=== PATIENT | female | born 1970 | race Caucasian/White ===

== ENCOUNTER 2022-07-26 11:04 | Outpatient (CLI) | payer SELFPAY ==
--- NOTE | 2022-07-26 11:30 | CRLHL7_ITS ---
For Patients: As a result of the Century Cures Act, medical imaging exams and procedure reports are released immediately into your electronic medical record. You may view this report before your referring provider. If you have questions, please contact your health care provider. BILATERAL SCREENING MAMMOGRAM WITH COMPUTER-AIDED DETECTION TECHNIQUE: CC and MLO views were obtained. These mammographic images have been obtained using full-field digital technique. These mammographic images were interpreted with the benefit of computer-aided detection. COMPARISON FILM: Baseline. FINDINGS: The breasts are heterogeneously dense, which may obscure small masses IMPRESSION: There is no radiographic evidence for malignancy. ASSESSMENT: BI-RADS Category 1: Negative RECOMMENDATION: Routine screening mammogram in 1 year. A lay language report of this examination will be provided to the patient. Aden Vázquez M.D. Diagnostic Radiologist [email or web address] PRISCA/[email or web address] / be/Dictated by: Aden Vázquez MD @ 07/26/2022 11:46:00 AM (Electronically Signed)
== END 2022-07-26 11:05 | disposition home or self-care (01) ==
LOC: MAMMO 11:06
PROVIDERS: PCP Family Medicine
DX: Z12.31 Encounter for screening mammogram for malignant neoplasm of breast (principal); R92.2 Inconclusive mammogram
CPT/HCPCS: 77063; 77067

== ENCOUNTER 2024-01-31 11:12 | Outpatient (CLI) | payer OTHER, SELFPAY | END 2024-01-31 11:13 | disposition home or self-care (01) | PROVIDERS: PCP Family Medicine; Visit Provider Family Medicine | DX: E78.00 Pure hypercholesterolemia, unspecified (principal); R59.1 Generalized enlarged lymph nodes; R63.5 Abnormal weight gain; Z13.228 Encounter for screening for other metabolic disorders; Z13.29 Encounter for screening for other suspected endocrine disorder | CPT/HCPCS: 80053; 80061; 84443 ==

== ENCOUNTER 2024-08-29 07:48 | Outpatient (CLI) | payer OTHER, SELFPAY ==
--- NOTE | 2024-08-29 08:00 | CRLHL7_ITS ---
For Patients: As a result of the Century Cures Act, medical imaging exams and procedure reports are released immediately into your electronic medical record. You may view this report before your referring provider. If you have questions, please contact your health care provider. CLINICAL HISTORY: Headaches; concern for cerebral aneurysm. TECHNIQUE: Standard helical CT image acquisition through the head following the administration of intravenous contrast was performed. 3D and MIP reconstructions were performed at a separate workstation and permanently archived. COMPARISON: None available. FINDINGS: Intracranial atherosclerotic disease involves the posterior greater than anterior circulation noting severe stenosis of the distal intracranial right vertebral artery and multifocal moderate to severe stenoses of the proximal to mid basilar trunk. 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 No findings to suggest an arterial-venous shunting lesion. The major dural venous sinuses and deep venous system are patent. IMPRESSION: 1. 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 2. 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 For consultation with our Neurointerventional service at [facility] regarding this patient`s cerebral aneurysm, please call [phone] to make arrangements with our coordinator.: For consultation with our Neurointerventional service at [facility] regarding this patient`s cerebral aneurysm, please call [phone] to make arrangements with our coordinator.: Please note that all CT scans at this facility use dose modulation, iterative reconstruction, and/or weight-based dosing when appropriate to reduce radiation dose to as low as reasonably achievable. Dictated by Wilner Coto MD @ 08/29/2024 11:26:33 AM (Electronically Signed)
== END 2024-08-29 07:49 | disposition home or self-care (01) ==
PROVIDERS: PCP Family Medicine; Visit Provider Family Medicine
DX: R51.9 Headache, unspecified (principal); I67.1 Cerebral aneurysm, nonruptured; I65.01 Occlusion and stenosis of right vertebral artery; Z82.49 Family history of ischemic heart disease and other diseases of the circulatory system
CPT/HCPCS: 70496; Q9967

== ENCOUNTER 2024-11-11 13:03 | Outpatient (CLI) | payer OTHER, SELFPAY ==
--- NOTE | 2024-11-11 13:20 | CRLHL7_ITS ---
For Patients: As a result of the Century Cures Act, medical imaging exams and procedure reports are released immediately into your electronic medical record. You may view this report before your referring provider. If you have questions, please contact your health care provider. BILATERAL SCREENING MAMMOGRAM WITH COMPUTER-AIDED DETECTION AND TOMOSYNTHESIS TECHNIQUE: CC and MLO views were obtained. These mammographic images have been obtained using full-field digital technique. These mammographic images were interpreted with the benefit of computer-aided detection. Breast Tomosynthesis was used in this interpretation. COMPARISON FILM: 07/26/22. FINDINGS: The breasts are heterogeneously dense, which may obscure small masses. IMPRESSION: There is no radiographic evidence for malignancy. ASSESSMENT: BI-RADS Category 1: Negative RECOMMENDATION: Routine screening mammogram in 1 year. A lay language report of this examination will be provided to the patient. Aden Vázquez M.D. Diagnostic Radiologist [email or web address] SP/Dictated by: Aden Vázquez MD @ 11/12/2024 9:09:00 AM (Electronically Signed)
== END 2024-11-11 13:04 | disposition home or self-care (01) ==
LOC: MAMMO 13:04
PROVIDERS: PCP Family Medicine; Visit Provider Family Medicine
DX: Z12.31 Encounter for screening mammogram for malignant neoplasm of breast (principal); R92.333 Mammographic heterogeneous density, bilateral breasts
CPT/HCPCS: 77063; 77067

== ENCOUNTER 2024-11-18 12:58 | Outpatient (CLI) | payer OTHER, SELFPAY | END 2024-11-18 12:59 | disposition home or self-care (01) | PROVIDERS: PCP Family Medicine; Visit Provider Family Medicine | DX: Z12.4 Encounter for screening for malignant neoplasm of cervix (principal) | CPT/HCPCS: 88141; 88142 ==

== ENCOUNTER 2024-11-19 08:51 | Outpatient (CLI) | payer OTHER, SELFPAY | END 2024-11-19 08:52 | disposition home or self-care (01) | LOC: NFLDREF 11-27 23:25 | PROVIDERS: PCP Family Medicine; Referring Provider Family Medicine; Visit Provider Family Medicine | DX: E78.00 Pure hypercholesterolemia, unspecified (principal) | CPT/HCPCS: 80061; 80076 ==